=== PATIENT | female | born 1945 | race Two or more races ===

== ENCOUNTER → 2016-08-11 | Outpatient (CLI) | payer MEDICARE, BC ==
[~2016-08-11] MED LIST: ACID CONTROL20 MG PO; ALBUTEROL MININEB NEB; AMLODIPINE BESYL5 MG PO; APAP325 M2 PO; AZITHROMYCIN250 MG PO; FLAGYL PO; LEVAQUIN PO; NORVASC PO; PATIENT'S PHARMACY; PERCOCET 5/321 UDTAB PO; PREDNISONE PO; PROAIR HFA8.5 GM IH; SYMBICORT 160/4.6 G1 IH; WELLBUTRIN XL150 M1 PO
--- NOTE | ~2016-08-11 | MY6 ---
[facility] A Service of [facility] RADIOLOGY TEXT RESULTS PATIENT: MARU MITCHELL LOCATION: [facility] : 45 UNIT #: [id number] AGE: [address]: Josh Washington MD SEX: F ORDER DR: [id number] [place] [id number] [facility]. [place], [place] [address] [id number] O MR#: [id number] Acc #: [id number] NAME: MARU MITCHELL : 1945 SEX: F STUDY DATE/TIME: 08/11/2016 11:02 UNIT: [facility] ROOM: STUDY DESCRIPTION: MY Mammogram Dx Dig Karlos Attending Physician: Josh Washington M.D. Referring Physician: Josh Washington M.D. Ordering Physician: Josh Washington M.D. Primary Care Physician: Josh Washington M.D. MEDICAL IMAGING REPORT This report is preliminary unless electronic signature is present EXAM Bilateral digital diagnostic mammogram CAD. DATE 08/11/2016 HISTORY Palpable abnormality in the lower outer right breast for approximately ttk-zw-agvil weeks per patient. No documented personal or family history of breast malignancy. COMPARISON No previous mammogram at this institution for comparison. The patient is unaware of location of prior mammograms per history sheet. FINDINGS CC, MLO views were obtained of each breast and true ML views were obtained of the right breast. The study was performed utilizing digital technique and reviewed with an FDA-approved CAD device. Scattered fibroglandular densities are present bilaterally. There is a greater than 2 cm macrolobulated increased density nodule within the lower inner right breast mid to anterior third. No definite architectural distortion or microcalcification features are identified. Left breast is negative without nodularity, microcalcification, or architectural distortion. Targeted ultrasound was performed of the right breast at the site of the patient's palpable complaint today. Ultrasound was performed in my direct presence. An approximately 2.2 x 2.4 x 2.0 cm solid macrolobulated angulated mass lesion is identified. It demonstrates acoustic shadowing [facility] A Service of [facility] RADIOLOGY TEXT RESULTS PATIENT: MARU MITCHELL LOCATION: [facility] : 45 UNIT #: [id number] AGE: [address]: Josh Washington MD SEX: F ORDER DR: and demonstrates internal vascularity and color Doppler imaging. It lies at the 7 o'clock position approximately 3 cm deep to the nipple. This mass is consistent with the appearance of malignancy. No additional satellite nodules are seen. No adenopathy is seen within the right axilla. IMPRESSION 1. BIRADS category 4. Suspicious abnormality. Biopsy recommended. Approximately 2.4 cm solid angulated nodule is seen in the 7 o'clock axis of the right breast mid to anterior third depth, and is highly suspicious for malignancy. It corresponds to the patient's palpable complaint. Ultrasound-guided core biopsy recommended. Breast surgical consultation is also advised at this time. These can be scheduled by the referring physician's office at the patient's nearest convenience. 2. I have contacted the breast care aide, Cynthia, at this time, and she is in the process of notifying Dr. Washington's office regarding these pertinent findings and recommendations. 3. The findings and recommendations were discussed in great detail with the patient in the presence of her today. Patients over the age of 40 are entered into a reminder system with target due date for the next mammogram. A result letter will also be sent to the patient. BIRADS: 4 Suspicious abnormality; biopsy should be considered. Dictated by... Bertha Vargas M.D. THIS IS AN ELECTRONICALLY VERIFIED REPORT Bertha Vargas M.D. at 08/12/2016 2:22 PM LIVIA/kraen TD: 08/11/2016 12:41 JOB #: [id number] MEDICAL IMAGING REPORT Page 1 of 1 COPY
--- NOTE | ~2016-08-11 | US24 ---
[facility] A Service of [facility] RADIOLOGY TEXT RESULTS PATIENT: MARU MITCHELL LOCATION: [facility] : 45 UNIT #: [id number] AGE: [address]: Josh Washington MD SEX: F ORDER DR: [id number] [id number] [facility]. [place], [place] [address] [id number] O MR#: [id number] Acc #: [id number] NAME: MARU MITCHELL : 1945 SEX: F STUDY DATE/TIME: 08/11/2016 11:25 UNIT: [facility] ROOM: STUDY DESCRIPTION: US Breast Unilateral Attending Physician: Josh Washington M.D. Referring Physician: Josh Washington M.D. Ordering Physician: Josh Washington M.D. Primary Care Physician: Josh Washington M.D. MEDICAL IMAGING REPORT This report is preliminary unless electronic signature is present EXAM Right breast diagnostic ultrasound 08/11/2016 HISTORY Palpable abnormality in the right breast on diagnostic mammogram today. COMPARISON Bilateral digital diagnostic mammogram 08/11/2016. No more remote available mammogram studies are available at this institution for comparison. Location of any outside study is not known per patient history. FINDINGS Targeted sonographic imaging was performed of the right breast at the site of patient's palpable complaint. At the 7 o'clock position approximately 3 cm from the nipple, a 2.2 x 2.4 x 2 cm solid hypoechoic lobulated and angulated lesion is demonstrated with internal vascularity and color Doppler imaging. It demonstrates acoustic shadowing. This finding is highly suspicious for malignancy. No additional satellite nodules are seen within the same quadrant. Additionally, real-time ultrasound scanning was performed of the right axilla in my direct presence. and no right axillary adenopathy is identified, either. IMPRESSION Right breast BIRADS category 4. Suspicious abnormality. Biopsy recommended. Please refer to the diagnostic mammogram report from this same date for full description of mammographic and sonographic findings and recommendations. BIRADS: 4 Suspicious abnormality - Biopsy should be considered [facility] A Service of [facility] RADIOLOGY TEXT RESULTS PATIENT: MARU MITCHELL LOCATION: [facility] : 45 UNIT #: [id number] AGE: [address]: Josh Washington MD SEX: F ORDER DR: Dictated by... Bertha Vargas M.D. THIS IS AN ELECTRONICALLY VERIFIED REPORT Bertha Vargas M.D. at 08/12/2016 2:22 PM LIVIA/latisha TD: 08/11/2016 12:52 JOB #: [id number] MEDICAL IMAGING REPORT Page 1 of 1 COPY
== END | disposition home or self-care (01) ==
LOC: CMAM 08-10 08:30
DX: N63 Unspecified lump in breast (principal)
CPT/HCPCS: 76641; G0202; G0204

== ENCOUNTER → 2016-08-17 | Outpatient (CLI) | payer MEDICARE, BC ==
--- NOTE | ~2016-08-17 | US200 ---
[facility] A Service of [facility] RADIOLOGY TEXT RESULTS PATIENT: MARU MITCHELL LOCATION: [facility] : 45 UNIT #: [id number] AGE: [address]: Britt Ugalde MD SEX: F ORDER DR: [id number] [place] [address] [id number] [facility]. [place], [place] [address] [id number] O MR#: [id number] Acc #: [id number] NAME: MARU MITCHELL : 1945 SEX: F STUDY DATE/TIME: 08/17/2016 8:06 UNIT: [facility] ROOM: STUDY DESCRIPTION: US Breast Guided Bx 1st Lesion Attending Physician: Britt Ugalde M.D., Ph.D. Referring Physician: Britt Ugalde M.D., Ph.D. Ordering Physician: Britt Ugalde M.D., Ph.D. Primary Care Physician: Britt Ugalde M.D., Ph.D. MEDICAL IMAGING REPORT This report is preliminary unless electronic signature is present REVISED REPORT SEE ADDENDUM EXAM Ultrasound-guided biopsy of right breast INDICATION Large right breast mass. Prior studies were showing a 2 cm mass in the right breast at 7 o'clock. FINDINGS After informed consent and sterile preparation and local anesthesia I obtained 3 14-gauge core samples under direct ultrasound guidance. An image of each pass was recorded and stored on the DR system. Then a marker was placed into the mass. Patient tolerated procedure well is well. Post procedure mammogram showed the clip in good position. IMPRESSION Successful core sampling of a suspicious right breast mass. Pathology report is pending. Dictated by... Jamie Liang M.D. THIS IS AN ELECTRONICALLY VERIFIED REPORT Jamie Liang M.D. at 08/18/2016 7:05 AM EDWIN/rnkacey TD: 08/17/2016 18:38 JOB #: [id number] [facility] A Service of [facility] RADIOLOGY TEXT RESULTS PATIENT: MARU MITCHELL LOCATION: [facility] : 45 UNIT #: [id number] AGE: [address]: Britt Ugalde MD SEX: F ORDER DR: ADDENDUM Pathology report shows invasive ductal carcinoma of the breast. Patient will follow-up with Dr. Ugalde. Dictated by... Jamie Liang M.D. THIS IS AN ELECTRONICALLY VERIFIED REPORT Jamie Liang M.D. at 08/28/2016 1:53 PM EDWIN/lorena TD: 08/27/2016 02:14 JOB #: [id number] MEDICAL IMAGING REPORT Page 1 of 1 COPY
== END | disposition home or self-care (01) ==
LOC: CWCC 07:25
DX: C50.911 Malignant neoplasm of unspecified site of right female breast (principal); Z17.0 Estrogen receptor positive status [ER+]
CPT/HCPCS: 88305; 88341; 88342; 88360; G0204

== ENCOUNTER 2016-11-09 08:54 | Inpatient (IN) | payer MEDICARE, BC ==
[~2016-11-09] VITALS: Ht 149.9 cm; Wt 78.6 kg
--- NOTE | ~2016-11-09 | CR72 ---
[facility] A Service of [facility] RADIOLOGY TEXT RESULTS PATIENT: MARU MITCHELL LOCATION: [facility] : 45 UNIT #: [id number] AGE: [address]: Lacey Iglesias APRN SEX: F ORDER DR: [id number] [facility] [address] [place], [place] [address] [id number] E MR#: [id number] Acc #: [id number] NAME: MARU MITCHELL : 1945 SEX: F STUDY DATE/TIME: 11/09/2016 10:06 UNIT: [facility] ROOM: STUDY DESCRIPTION: CR Chest Single View Portable Attending Physician: Lacey Iglesias A.P.R.N. Ordering Physician: Ed Doctor [id number] [facility] Primary Care Physician: Josh Washington M.D. MEDICAL IMAGING REPORT This report is preliminary unless electronic signature is present EXAM Chest portable 11/09/2016 10:06 hours HISTORY Shortness of air with abdominal pain beginning 1 week ago. Patient with breast carcinoma who recently started chemotherapy. COMPARISON 09/21/2016 FINDINGS Portable upright chest demonstrates stable left subclavian port catheter with tip in SVC. The cardiac, mediastinal and hilar contours are normal. The lung volumes are improved over the prior exam. The lungs are clear and there are no effusions. IMPRESSION 1. Stable left subclavian port catheter with tip in SVC. 2. Improved lung volumes with clear lungs. No pleural effusion or pneumothorax. Dictated by... Saida Vega M.D. THIS IS AN ELECTRONICALLY VERIFIED REPORT Saida Vega M.D. at 11/09/2016 2:31 PM DAVONTE/sahra TD: 11/09/2016 12:38 JOB #: [id number] [facility] A Service of [facility] RADIOLOGY TEXT RESULTS PATIENT: MARU MITCHELL LOCATION: [facility] : 45 UNIT #: [id number] AGE: [address]: Lacey Iglesias APRN SEX: F ORDER DR: MEDICAL IMAGING REPORT Page 1 of 1 COPY
--- NOTE | ~2016-11-09 | CT4 ---
[facility] A Service of [facility] & [facility] RADIOLOGY TEXT RESULTS PATIENT: MARU MITCHELL LOCATION: A 313-01 : 45 UNIT #: [id number] AGE: [address]: Jeevan Drummond MD SEX: F ORDER DR: [id number] [facility] [address] [place], [place] [address] [id number] E MR#: [id number] Acc #: [id number] NAME: MARU MITCHELL : 1945 SEX: F STUDY DATE/TIME: 11/09/2016 12:12 UNIT: [facility] ROOM: STUDY DESCRIPTION: CT Abd and Pelv Wo Cont Attending Physician: Lacey Iglesias A.P.R.N. Ordering Physician: Ed Doctor [id number] [facility] Primary Care Physician: Josh Washington M.D. MEDICAL IMAGING REPORT This report is preliminary unless electronic signature is present EXAM CT abdomen and pelvis, 11/09/2016 HISTORY Left lower quadrant pain, nausea undergoing chemo for breast cancer since Monday night 11/05/2016. Pain. Prior appendectomy. Right hip surgery, right breast lumpectomy, breast cancer diagnosed 1-[address] abdomen pelvis performed without administration of oral or intravenous contrast. This CT exam was performed with one or more of the following radiation dose reduction techniques: automatic exposure control, adjustment of mA and/or kV according to patient size, and iterative reconstruction. FINDINGS Study limited in the absence of both enteric and intravascular contrast. No prior CTs of the abdomen and pelvis for comparison. There are limited views of the upper abdomen from CT chest dated 12/30/2009. Postoperative changes in the right anterior chest wall likely related to the patient's breast cancer. The lung bases are notable for mild bronchiectasis without mucous plugging. There is probably underlying centrilobular emphysema as well. The heart is upper limits of normal in size. Fatty infiltration of the liver. Gallbladder shows some questionable nonobstructing gallstones. No gallbladder inflammatory change and no biliary ductal dilatation. Spleen, pancreas, adrenal glands, kidneys unremarkable. CT Pelvis: Images degraded by streak artifact from right hip prosthesis. Urinary bladder unremarkable in visualized extent. Uterus and adnexal regions unremarkable. No fluid collections. No pelvic or retroperitoneal adenopathy. Distal esophagus, stomach, small bowel unremarkable. Prior appendectomy. In the proximal to mid transverse colon there is a segment STS. [facility] A Service of [facility] & [facility] RADIOLOGY TEXT RESULTS PATIENT: MARU MITCHELL LOCATION: [facility] 313-01 : 45 UNIT #: [id number] AGE: [address]: Jeevan Drummond MD SEX: F ORDER DR: of bowel measuring about 3.0-4.0 cm in length. There is some subtle wall thickening and adjacent haziness/fat stranding. Diverticular disease in this region. Appearance concerning for mild acute diverticulitis. In the descending colon there is a longer segment of bowel measuring on the order of 8.0-9.0 cm with adjacent fat stranding and haziness. Extensive diverticular disease in this region. Mild descending colon diverticulitis favored. I do not see distinct inflamed diverticula in this in these regions. The possibility of some other infectious or inflammatory colitis could be considered. There is no free air, obstruction or fluid collection. Atherosclerotic arterial calcifications. No aneurysm. Right hip arthroplasty is noted. No acute-appearing bony abnormality. IMPRESSION 1. Near pancolonic diverticulosis. In proximal to mid transverse colon there is an approximately 3.0-4.0 cm segment demonstrating mural thickening and some subtle adjacent pericolonic fat stranding and haziness. There is a longer 8.0-9.0 cm length of descending colon with similar findings. Findings are concerning for acute diverticulitis in these regions though focally inflamed diverticula are not visualized. The possibility of some other form of infectious or inflammatory colitis could be considered. No resulting free air, fluid collection or abscess. No obstruction. I would recommend short-interval followup imaging after treatment for diverticulitis to ensure resolution of wall thickening. 2. Faintly visualized gallstones. No cholecystitis or biliary ductal dilatation. 3. Kidneys and collecting system normal. 4. Prior right hip arthroplasty. Remainder of examination unremarkable. Dictated by... Reynold Cervantes M.D. THIS IS AN ELECTRONICALLY VERIFIED REPORT Reynold Cervantes M.D. at 11/10/2016 6:35 PM Zara TD: 11/09/2016 14:12 JOB #: [id number] MEDICAL IMAGING REPORT Page 1 of 1 COPY
--- NOTE | ~2016-11-09 | CO ---
Unit #: [id number] #: [id number] Patient: MARU MITCHELL [id number] [address] [place], [place] [address] [id number] I MR#: [id number] NAME: MARU MITCHELL ROOM: 313 Age: 71 Sex: F Admission Date: 11/09/2016 : 1945 Attending Physician: Jeevan Drummond M.D. Primary Care Physician: Josh Washington M.D. Consultation Date: 11/10/2016 CONSULTATION REPORT REASON FOR EVAL Neutropenia and possible diverticulitis; please evaluate. HISTORY OF PRESENT ILLNESS This is a 71-year-old lady who had a lumpectomy on the right side, was found to have breast cancer, which was HER-2/jose armando positive. On the 17 of this month, she received her first dose of Taxotere, Cytoxan and Herceptin. Presents with neutropenia and possible diverticulitis. PAST MEDICAL HISTORY Her past history is mainly remarkable for this diagnosis of breast cancer, lumpectomy. She does have a history of acute on chronic bronchitis and possible COPD. CHRONIC MEDICATIONS Wellbutrin and Norvasc. ALLERGIES No known allergies. FAMILY HISTORY Family history is negative for blood disorders or breast cancer. SOCIAL HISTORY She does have a history of smoking but quit many years ago. No history of drugs or alcohol. Patient is from [facility], is and lives with her . REVIEW OF SYSTEMS Mainly, she states she felt sick. On questioning, it was mainly abdominal cramping and decreased appetite. Mild degree of diarrhea. No fever or chills. No night sweats. Otherwise, 6 or 8 systems were within normal limits. PHYSICAL EXAMINATION GENERAL: She is in no acute distress, sitting up and eating frozen yogurt. LYMPHATICS: No palpable nodes. LUNGS: Clear. CARDIOVASCULAR: Distant S1, S2. ABDOMEN: Diffuse tenderness. No rebound. No rigidity. PELVIC EXAM: Not performed. BREAST EXAM: Not performed. Unit #: [id number] #: [id number] Patient: MARU MITCHELL DIAGNOSTIC STUDIES LABORATORY: CBC - Hemoglobin 11.3, hematocrit 34.8, white count 2,700, platelets 69,000. Sodium 135, potassium 4, chloride 106, CO2 24, glucose 159, BUN 14, creatinine 1. IMPRESSION This 71-year-old lady status post chemotherapy a week ago now has neutropenia and possible diverticulitis. Has a history of breast cancer status post Taxotere, Cytoxan and Herceptin chemotherapy. PLAN Agree with broad-spectrum antibiotics for her diverticulitis, which will include Rocephin and Flagyl. We would recommend hand washing before touching. Add Granix 480 mcg subcu daily. Hold if the white count is greater than 3,500. Will check a CBC daily, and in case she spikes a fever above 101.5, will do 2 sets of blood cultures 10 minutes apart. Dictated by... Ely Metz/kinga TD: 11/10/2016 15:50 JOB #: [id number] CONSULTATION REPORT Page 1 of 1 X Wolf Brasher MD X CONSULTATION REPORT
--- NOTE | ~2016-11-09 | CO ---
Unit #: [id number] #: [id number] Patient: MARU CABRERA [id number] [address] [address] [id number] I MR#: [id number] NAME: MARU CABRERA ROOM: 313 Age: 71 Sex: F Admission Date: 11/09/2016 : 1945 Attending Physician: Karthik Rodriguez M.D. Primary Care Physician: Josh Washington M.D. Consultation Date: 11/13/2016 CONSULTATION REPORT PRIMARY CARE PHYSICIAN Josh Washington M.D. REASON FOR CONSULTATION Diverticulitis. HISTORY OF PRESENT ILLNESS Ms. Cabrera is a very pleasant 71-year-old white female. History was provided by the patient and by her who was sitting at the bedside. For the past 3 to 4 days, the patient has had increasing abdominal pain in the left lower quadrant of the abdomen to the point where it became extremely intense and continuous. The patient was brought to the hospital. Incidentally, she has recently finished chemotherapy after treatment for breast cancer and the last chemotherapy dose was about a week ago. At that time when she came in, she had neutropenic fever and thus was started on G-CSF by Hematology, Dr. Brasher. The patient since then has improved with resolution of fever and is feeling much better in terms of overall pain level in her abdomen on a combination of Zosyn and Flagyl. Her appetite is still quite poor and she is on clear liquid diet. Although, the patient has been found to have Hemoccult-positive stools, there is no history of overt GI bleed in the form of hematemesis, melena, or hematochezia. Admission hemoglobin was 14 and has since then dropped gradually to 8.8. There is no history of overt GI bleed; although, she is found to have occult gastrointestinal blood loss. Her white count is actually 23,500 today. Admission white count was 1.3. The patient has not had any colonoscopy in the past that she can remember. PAST MEDICAL HISTORY Significant for history of breast cancer being recently treated by lumpectomy followed by chemoradiation therapy, history of COPD, and GERD. PAST SURGICAL HISTORY Included lumpectomy, section, and appendectomy. MEDICATIONS At home included Norvasc and Wellbutrin. ALLERGIES She has no known drug allergies. FAMILY HISTORY None of colon, pancreatic cancer, or liver disease. Unit #: [id number] #: [id number] Patient: MARU CABRERA SOCIAL HISTORY Remote history of smoking. Does not drink alcohol. Lives at home with . She is originally from [facility]. REVIEW OF SYSTEMS Detailed review of organ systems is significant for left lower abdominal pain. There is no history of diarrhea. No history of nausea or vomiting. There is a history of low-grade fever on admission, which is now resolved. No history of chills or rigors. No history of significant weight loss. No history of headache, seizures, chest pain, or syncope. No history of cough, expectoration, or hemoptysis. No history of dysuria, hematuria, or pyuria. No history of focal seizures or extremity weakness. PHYSICAL EXAMINATION GENERAL: She is awake, alert, and oriented, and appears comfortable. VITAL SIGNS: Stable with a temperature of 98.7, pulse 89, respiratory rate is 18, blood pressure 122/68. She weighs 171 pounds which is close to her baseline weight. HEENT: She has mild pallor. There being no icterus, lymphadenopathy, or peripheral edema. CARDIOVASCULAR: Normal heart sounds. No murmurs. LUNGS: Auscultation over the lungs reveals normal breath sounds. Good air entry. ABDOMEN: Obese and soft with localized minimal tenderness in the left lower quadrant. No area of exquisite rigidity, rebound, or guarding is felt. Liver and spleen are not palpable. Bowel sounds normal. DIAGNOSTIC STUDIES LABORATORY RESULTS: Shows a hemoglobin of 8.8 with admission hemoglobin of 14. This has been a slow drop. White count today is 23.5 on G-CSF. Platelet count is 129. Serum chemistry shows normal BUN and creatinine, and potassium of 3.4, albumin is 3.3. LFTs are normal. Urinalysis shows 1+ leukocyte esterase positive. IMAGING STUDIES: A CT scan of the abdomen and pelvis was done and is consistent with left descending colon diverticulitis. This however an additional segment in the transverse colon which is separate from the descending colon segment that is also concerning. CLINICAL IMPRESSION The overall diagnosis here is indeed acute diverticulitis on a background of neutropenic sepsis which is now resolving. The patient with history of breast cancer, status post lumpectomy and chemotherapy finished now. MANAGEMENT PLAN Includes continuation of IV antibiotics as the patient seems to be responding. We will advance her diet over the next couple of days. The patient will require a diagnostic colonoscopy as an outpatient in 6 to 8 weeks after recovery from the current episode. The above plan was discussed with the patient and her who was at the bedside and they were reassured. Thank you for asking me to see this pleasant woman. I appreciate the consult. Dictated by... Unit #: [id number] #: [id number] Patient: MARU CABRERA M.D. AK/shahriar TD: 11/14/2016 14:06 JOB #: [id number] CC: Ely Howard M.D. CONSULTATION REPORT Page 1 of 1 X Ranulfo Arreola MD X CONSULTATION REPORT
--- NOTE | ~2016-11-09 | DS ---
Unit #: [id number] #: [id number] Patient: MARU MITCHELL [id number] [address] [address] [id number] MR#: [id number] NAME: MARU MITCHELL ROOM: 313 Age: 71 Sex: F Admission Date: 11/09/2016 : 1945 Discharge Date: 11/14/2016 Attending Physician: Karthik Rodriguez M.D. Primary Care Physician: Josh Washington M.D. DISCHARGE SUMMARY DISCHARGE DIAGNOSES 1. Colitis. 2. Breast cancer. 3. Anemia. 4. Pancytopenia secondary to chemotherapy. HOSPITAL COURSE The patient is a 71-year-old female who presented to [facility] on 11/09/16 secondary to some abdominal pain. She had had chemotherapy 7 days before. She had been feeling sick for about 5 days and had worsening pain. She presented to the emergency department. CT showed acute diverticulitis. Patient was started on IV antibiotics. She was seen in consultation by Dr. Brasher, given her history of breast cancer with chemotherapy. She was noted to have significant pancytopenia and was, thus, seen in consultation by hematology/oncology, as well. The patient initially had neutropenia and received Granix. Her white count the day prior to discharge was 23. Patient had heme-positive stools and was seen by gastroenterology who noted no need for intervention. At this time, given recovery of her cell lines and that she is tolerating a diet, the patient is being discharged home with 5 more days of antibiotics. She should follow up with hematology/oncology in one week. Dictated by... Karthik Rodriguez M.D. CARLOS/kinga TD: 11/16/2016 10:56 JOB #: [id number] Unit #: [id number] #: [id number] Patient: MARU MITCHELL DISCHARGE SUMMARY Page 1 of 1 X Karthik Rodriguez MD DISCHARGE SUMMARY
--- NOTE | ~2016-11-09 | EKG ---
PATIENT: MARU MITCHELL UNIT #: [id number] Ventricular Rate: 98 BPM Atrial Rate: 98 BPM P-R Interval: 166 ms QRS Duration: 82 ms Q-T Interval: 344 ms QTC Calculation(Bezet): 439 ms P [place]: 19 degrees Calculated R [place]: 46 degrees Calculated T [place]: -23 degrees Diagnosis Line: Normal sinus rhythm Diagnosis Line: Inferior infarct , age undetermined Diagnosis Line: T wave abnormality, consider anterior ischemia Diagnosis Line: Abnormal ECG Diagnosis Line: When compared with ECG of 31-MAR-2014 21:28, Diagnosis Line: Inferior infarct is now Present Diagnosis Line: Confirmed by AYLIN FONTANEZ MD ([id number]) on 11/10/2016 Diagnosis Line: 10:18:39 PM INTERPRETING MD: HUSEYIN FABIAN
--- NOTE | ~2016-11-09 | HP ---
Unit #: [id number] #: [id number] Patient: MARU MITCHELL [id number] [address] [address] [id number] MR#: [id number] NAME: MARU MITCHELL ROOM: Age: 71 Sex: F Admission Date: 11/09/2016 : 1945 Attending Physician: Lacey Iglesias A.P.R.N. Primary Care Physician: Josh Washington M.D. HISTORY AND PHYSICAL CHIEF COMPLAINT Abdominal pain. HISTORY OF PRESENT ILLNESS The patient is a 71-year-old female with history of hypertension and newly diagnosed right breast cancer status post lumpectomy and chemo, brought to the emergency room complaining of the abdominal pain. The patient had a last chemo last . The patient went home and started feeling sick since Monday. Monday, the patient was gradually having worsening abdominal pain, mainly the left lower quadrant and presented to the emergency room for the above reasons. The patient had a CT of the abdomen and pelvis that showed acute diverticulitis and is being admitted for the above reasons. Denies any fevers, chills. The patient feels cold. Denies any sick contacts. No history of colonoscopy in the past. PAST MEDICAL HISTORY 1. History of COPD. 2. GERD. PAST SURGICAL HISTORY 1. Appendectomy. 2. . 3. Lumpectomy. ALLERGIES None. HOME MEDICATIONS 1. Norvasc. 2. Wellbutrin. FAMILY HISTORY Reviewed and none. SOCIAL HISTORY The patient has a remote history of smoking and no history of alcohol and any illicit drug abuse. Patient is originally from [facility] and currently lives with her . REVIEW OF SYSTEMS Positive for the cold. Positive for the abdominal pain. Denies any nausea and vomiting. Denies any chest pain. All other systems are reviewed and none. Unit #: [id number] #: [id number] Patient: MARU MITCHELL PHYSICAL EXAMINATION GENERAL: Patient is lying on a bed not in acute distress. VITAL SIGNS: Temperature 97.1, pulse 112, respiratory rate 16, blood pressure 16, blood pressure 136/87, saturating 97% on room air. HEENT: Head atraumatic, normocephalic. Pupils equal, round, and reactive to light and accommodation. Dry mucous membrane. NECK: Supple. LUNGS: Decreased air entry at the bases. HEART: Regular rate and rhythm. ABDOMEN: Soft. Positive bowel sounds. Tenderness at the left lower quadrant. No rebound. No rigidity. EXTREMITIES: No cyanosis. No clubbing. NEUROLOGIC: Alert, awake, oriented. No gross focal motor deficit. DIAGNOSTIC STUDIES LABORATORY: Strep throat is negative. Troponin less than 0.05. WBC 1.3, hemoglobin 14, hematocrit 41.4, platelets 65,000. Neutrophils 16.7. Sodium 134, potassium 4, chloride 101, bicarbonate 23, glucose 156, BUN 32, creatinine 1.1. AST 23, ALT 33, alkaline phosphatase 105, albumin 3.3, lipase 16, amylase 19. UA shows 1+ leukocyte esterase. IMAGING: Chest x-ray shows a stable left subclavian port catheter with tip in SVC, improved lung volumes with clear lungs. No pleural effusion or pneumothorax. CT of the abdomen and pelvis shows near pancolonic diverticulosis. In proximal to mid transverse colon, there is approximately 3 to 4 cm demonstrating mural thickening and some subtle adjacent pericolonic fat stranding and haziness. There is a longer 8 to 9 length of descending colon with similar findings. Findings are concerning for acute diverticulitis in these regions though focally inflamed diverticula are note visualized. The possibility of some other forms of infection or inflammatory colitis could be considered. No resulting free air fluid collection or abscess. No obstruction. Faintly visualized gallstones. Kidneys and collecting system normal. Prior right hip arthroplasty. ASSESSMENT 1. Diverticulitis. 2. Thrombocytopenia. 3. History of right breast cancer, status post lumpectomy and chemotherapy. PLAN Plan to admit the patient to the inpatient. Continue with IV fluids. Bowel rest with ice chips. Check the lactic acid and initiate the sepsis protocol. Continue with the IV antibiotics with Rocephin and Flagyl and repeat the labs again in the morning. Further recommendations will follow. Dictated by Ely Yancey TD: 11/09/2016 14:59 JOB #: [id number] Unit #: [id number] #: [id number] Patient: MARU MITCHELL HISTORY AND PHYSICAL Page 1 of 1 X OSITO STARK MD HISTORY AND PHYSICAL
[~2016-11-09 08:54] MED LIST changes: -FLAGYL PO; -LEVAQUIN PO; -NORVASC PO; -PATIENT'S PHARMACY; -PERCOCET 5/321 UDTAB PO; -WELLBUTRIN XL150 M1 PO
[2016-11-09 10:15] LABS: BASOPHIL% 0.5 % (0-2.5); EOSINOPHIL# 0.1 X10e3 (0-0.7); EOSINOPHIL% 7.2 % (0.0-7.0); HEMATOCRIT 41.4 % (35.0-45.0); LYMPHOCYTE# 0.9 X10e3 (1.0-3.5); LYMPHOCYTE% 66.4 % (17.0-45.0); MEAN CELL VOLUME 87.8 FL (83-96); MEAN CORPUSCULAR HEMOGLOBIN 29.6 PG (28-34); MEAN CORPUSCULAR HGB CONC 33.8 g/dL (30-36); MEAN PLATELET VOLUME 9.7 FL (6.5-11.5); MONOCYTE# 0.1 X10e3 (0-1.0); MONOCYTE% 9.2 % (3.0-12.0); NEUTROPHIL# 0.2 X10e3 (1.5-7.1); NEUTROPHIL% 16.7 % (40-75); RED BLOOD COUNT 4.72 X10e (3.90-5.30); RED CELL DISTRIBUTION WIDTH 14.4 % (11.0-15.5); WHITE BLOOD COUNT 1.3 X10e3 (4.0-10.5)
[2016-11-09 10:33] LABS: POC - CKMB <1.0 ng/mL (0.0-7.9); POC - TROPONIN <0.05 ng/mL (<=0.05)
[2016-11-09 10:34] LABS: DIFF IND YES; PLATELET COUNT 65 X10e3 (140-420)
[2016-11-09 10:35] LABS: ANISOCYTOSIS SL; PLATELET ESTIMATE DECREASED (NORMAL)
[2016-11-09 10:38] LABS: ALBUMIN SERUM 3.3 g/dL (3.5-5.0); BILIRUBIN, DIRECT 0.4 mg/dL (0.0-0.2); BILIRUBIN,INDIRECT 0.6 mg/dL (0.0-0.9); BUN/CREATININE RATIO 29.09; CALCIUM SERUM 8.5 mg/dL (8.4-10.2); CREATININE SERUM 1.1 mg/dL (0.6-1.4); GLOM FILT RATE Estimated 50.5 mL/min (>60); PROTEIN TOTAL SERUM 7.3 g/dL (6.0-8.3)
[2016-11-09 11:42] LABS: URINE SOURCE CLEAN CATCH
[2016-11-09 11:51] LABS: URINE APPEARANCE CLEAR; URINE BLOOD TRACE (NEG); URINE COLOR DK YELLOW; URINE GLUCOSE NEG (NEG); URINE KETONE TRACE (NEG); URINE LEUKOCYTE ESTERASE 1+ (NEG); URINE NITRATE NEG (NEG); URINE PROTEIN TRACE (NEG); URINE SPECIFIC GRAVITY 1.028 (1.003-1.035)
[2016-11-09 11:54] LABS: URINE BACTERIA AUWI NEG (NEGATIVE); URINE SQUAMOUS EPITHELIAL CELL OCC /[HPF]
[2016-11-09 12:01] LABS: CULTURE INDICATED? NO; URINE BILIRUBIN NEG (NEG)
[2016-11-09] MEDS ORDERED: NORVASC PO (14:36)
[2016-11-09] MEDS ORDERED: PATIENT'S PHARMACY (14:36)
[2016-11-09] MEDS ORDERED: WELLBUTRIN XL150 M1 PO (14:36)
[2016-11-10 05:22] LABS: HEMATOCRIT 34.8 % (35.0-45.0); MEAN CELL VOLUME 89.5 FL (83-96); MEAN CORPUSCULAR HEMOGLOBIN 29.1 PG (28-34); MEAN CORPUSCULAR HGB CONC 32.5 g/dL (30-36); MEAN PLATELET VOLUME 10.2 FL (6.5-11.5); RED BLOOD COUNT 3.89 X10e (3.90-5.30); RED CELL DISTRIBUTION WIDTH 14.3 % (11.0-15.5)
[2016-11-10 05:25] LABS: HEMOGLOBIN 11.3 gm/dL (12.0-16.0); WHITE BLOOD COUNT 2.7 X10e3 (4.0-10.5)
[2016-11-10 07:16] LABS: CALCIUM SERUM 7.6 mg/dL (8.4-10.2); GLOM FILT RATE Estimated 56.7 mL/min (>60)
[2016-11-11 05:58] LABS: BASOPHIL% 0.2 % (0-2.5); EOSINOPHIL# 0.1 X10e3 (0-0.7); EOSINOPHIL% 0.5 % (0.0-7.0); HEMATOCRIT 33.2 % (35.0-45.0); HEMOGLOBIN 10.9 gm/dL (12.0-16.0); LYMPHOCYTE# 1.8 X10e3 (1.0-3.5); LYMPHOCYTE% 11.7 % (17.0-45.0); MEAN CELL VOLUME 89.2 FL (83-96); MEAN CORPUSCULAR HEMOGLOBIN 29.1 PG (28-34); MEAN CORPUSCULAR HGB CONC 32.7 g/dL (30-36); MEAN PLATELET VOLUME 10.3 FL (6.5-11.5); MONOCYTE# 0.7 X10e3 (0-1.0); MONOCYTE% 4.9 % (3.0-12.0); NEUTROPHIL# 12.5 X10e3 (1.5-7.1); NEUTROPHIL% 82.7 % (40-75); PLATELET COUNT 98 X10e3 (140-420); RED BLOOD COUNT 3.73 X10e (3.90-5.30); RED CELL DISTRIBUTION WIDTH 14.4 % (11.0-15.5); WHITE BLOOD COUNT 15.1 X10e3 (4.0-10.5)
[2016-11-11 06:00] LABS: DIFF IND NO
[2016-11-11 06:06] LABS: CALCIUM SERUM 7.7 mg/dL (8.4-10.2); CREATININE SERUM 0.8 mg/dL (0.6-1.4); GLOM FILT RATE Estimated 74.2 mL/min (>60); POTASSIUM 3.1 mmol/L (3.5-5.1)
[2016-11-12 06:08] LABS: BUN/CREATININE RATIO 8.75; CALCIUM SERUM 7.7 mg/dL (8.4-10.2); CREATININE SERUM 0.8 mg/dL (0.6-1.4); GLOM FILT RATE Estimated 74.2 mL/min (>60); MAGNESIUM 1.6 mg/dL (1.6-3.0); POTASSIUM 3.4 mmol/L (3.5-5.1)
[2016-11-12 08:19] LABS: HEMATOCRIT 29.9 % (35.0-45.0); HEMOGLOBIN 9.6 gm/dL (12.0-16.0); MEAN CELL VOLUME 90.2 FL (83-96); MEAN CORPUSCULAR HGB CONC 32.2 g/dL (30-36); MEAN PLATELET VOLUME 10.6 FL (6.5-11.5); RED BLOOD COUNT 3.31 X10e (3.90-5.30); RED CELL DISTRIBUTION WIDTH 14.5 % (11.0-15.5); WHITE BLOOD COUNT 41.4 X10e3 (4.0-10.5)
[2016-11-12 20:54] LABS: HEMATOCRIT 29.5 % (35.0-45.0); HEMOGLOBIN 9.4 gm/dL (12.0-16.0)
[2016-11-13 02:39] LABS: HEMATOCRIT 27.6 % (35.0-45.0); HEMOGLOBIN 8.9 gm/dL (12.0-16.0)
[2016-11-13 09:03] LABS: HEMATOCRIT 26.6 % (35.0-45.0); HEMOGLOBIN 8.8 gm/dL (12.0-16.0); MEAN CELL VOLUME 89.3 FL (83-96); MEAN CORPUSCULAR HEMOGLOBIN 29.4 PG (28-34); MEAN PLATELET VOLUME 9.2 FL (6.5-11.5); RED BLOOD COUNT 2.97 X10e (3.90-5.30); RED CELL DISTRIBUTION WIDTH 14.6 % (11.0-15.5); WHITE BLOOD COUNT 23.5 X10e3 (4.0-10.5)
[2016-11-13 15:00] LABS: HEMATOCRIT 27.6 % (35.0-45.0); HEMOGLOBIN 8.9 gm/dL (12.0-16.0)
[2016-11-13 20:59] LABS: HEMATOCRIT 31.4 % (35.0-45.0); HEMOGLOBIN 10.2 gm/dL (12.0-16.0)
[2016-11-14 02:51] LABS: HEMATOCRIT 30.1 % (35.0-45.0); HEMOGLOBIN 9.7 gm/dL (12.0-16.0)
[2016-11-14 06:45] LABS: ALBUMIN SERUM 2.3 g/dL (3.5-5.0); BILIRUBIN,TOTAL 0.6 mg/dL (0.2-2.0); BUN/CREATININE RATIO 7.14; CALCIUM SERUM 7.7 mg/dL (8.4-10.2); CREATININE SERUM 0.7 mg/dL (0.6-1.4); GLOM FILT RATE Estimated 87.2 mL/min (>60); POTASSIUM 3.9 mmol/L (3.5-5.1); PROTEIN TOTAL SERUM 4.7 g/dL (6.0-8.3)
[2016-11-14 10:19] LABS: HEMATOCRIT 29.6 % (35.0-45.0); HEMOGLOBIN 9.9 gm/dL (12.0-16.0)
[2016-11-14 14:38] LABS: HEMATOCRIT 29.8 % (35.0-45.0); HEMOGLOBIN 9.8 gm/dL (12.0-16.0); MEAN CELL VOLUME 89.6 FL (83-96); MEAN CORPUSCULAR HEMOGLOBIN 29.5 PG (28-34); MEAN CORPUSCULAR HGB CONC 32.9 g/dL (30-36); MEAN PLATELET VOLUME 9.6 FL (6.5-11.5); RED BLOOD COUNT 3.33 X10e (3.90-5.30); RED CELL DISTRIBUTION WIDTH 14.9 % (11.0-15.5); WHITE BLOOD COUNT 23.3 X10e3 (4.0-10.5)
[2016-11-14] MEDS ORDERED: FLAGYL PO (14:40)
[2016-11-14] MEDS ORDERED: PERCOCET 5/321 UDTAB PO (14:40)
[2016-11-14] MEDS ORDERED: LEVAQUIN PO (14:41)
== END 2016-11-14 17:52 | disposition home or self-care (01) | DRG 391 ==
LOC: CED 08:54 → CEDOF 14:17 → CED 14:17 → CEDOF 14:27 → C3A PCU 14:27 → CEDOF 14:27 → CED 14:27 → C3A PCU 11-10 07:44
PROVIDERS: Internal Medicine; Internal Medicine Medical Oncology; Nurse Practitioner
PROC: 30233N1 Transfusion of Nonautologous Red Blood Cells into Peripheral Vein, Percutaneous Approach (ICD-10-PCS; principal; 2016-11-13)
DX: K57.92 Diverticulitis of intestine, part unspecified, without perforation or abscess without bleeding (principal); D61.810 Antineoplastic chemotherapy induced pancytopenia; D69.6 Thrombocytopenia, unspecified; J44.9 Chronic obstructive pulmonary disease, unspecified; K92.1 Melena; K52.9 Noninfective gastroenteritis and colitis, unspecified; Z85.3 Personal history of malignant neoplasm of breast; T45.1X5A Adverse effect of antineoplastic and immunosuppressive drugs, initial encounter; Y92.9 Unspecified place or not applicable; R50.81 Fever presenting with conditions classified elsewhere; D64.9 Anemia, unspecified; I10 Essential (primary) hypertension; Z87.891 Personal history of nicotine dependence; E87.6 Hypokalemia
CPT/HCPCS: 36415; 71010; 74176; 80048; 80053; 80076; 81003; 82150; 82274; 82553; 83605; 83690; 83735; 84484; 85014; 85018; 85025; 85027; 86850; 86900; 86901; 86923; 87040; 87045; 87427; 87493; 87651; 87899; 93005; 94760; 96361; 96374; 96375; 97162; 97165; 99285; G8978-GP; G8979-GP; G8980-GP; G8987-GO; G8988-GO; G8989-GO; J0696; J1447; J2270; J2405; J2543; P9016

== ENCOUNTER 2016-11-20 19:09 | Emergency (ER) | payer MEDICARE, BC ==
[~2016-11-20] VITALS: Ht 152.4 cm; Wt 77.1 kg
[~2016-11-20 19:09] MED LIST changes: +FLAGYL PO; +LEVAQUIN PO; +NORVASC PO; +PATIENT'S PHARMACY; +PERCOCET 5/321 UDTAB PO; +WELLBUTRIN XL150 M1 PO
[2016-11-20 21:44] LABS: BASOPHIL% 0.1 % (0-2.5); EOSINOPHIL% 0.3 % (0.0-7.0); HEMATOCRIT 34.7 % (35.0-45.0); HEMOGLOBIN 11.4 gm/dL (12.0-16.0); LYMPHOCYTE# 2.3 X10e3 (1.0-3.5); LYMPHOCYTE% 14.1 % (17.0-45.0); MEAN CELL VOLUME 89.5 FL (83-96); MEAN CORPUSCULAR HEMOGLOBIN 29.3 PG (28-34); MEAN CORPUSCULAR HGB CONC 32.8 g/dL (30-36); MEAN PLATELET VOLUME 8.4 FL (6.5-11.5); MONOCYTE# 0.8 X10e3 (0-1.0); MONOCYTE% 4.7 % (3.0-12.0); NEUTROPHIL# 13.3 X10e3 (1.5-7.1); NEUTROPHIL% 80.8 % (40-75); PLATELET COUNT 433 X10e3 (140-420); RED BLOOD COUNT 3.88 X10e (3.90-5.30); RED CELL DISTRIBUTION WIDTH 15.5 % (11.0-15.5); WHITE BLOOD COUNT 16.4 X10e3 (4.0-10.5)
[2016-11-20 21:49] LABS: DIFF IND YES
[2016-11-20 22:05] LABS: ALBUMIN SERUM 2.9 g/dL (3.5-5.0); BILIRUBIN, DIRECT 0.1 mg/dL (0.0-0.2); BILIRUBIN,TOTAL 0.1 mg/dL (0.2-2.0); BUN/CREATININE RATIO 5.38; CALCIUM SERUM 8.1 mg/dL (8.4-10.2); CREATININE SERUM 1.3 mg/dL (0.6-1.4); GLOM FILT RATE Estimated 41.2 mL/min (>60); PROTEIN TOTAL SERUM 6.6 g/dL (6.0-8.3)
[2016-11-20 22:10] LABS: POTASSIUM 2.7 mmol/L (3.5-5.1)
[2016-11-20 22:13] LABS: PLATELET ESTIMATE NORMAL (NORMAL)
[2016-11-20 22:14] LABS: POLYCHROMASIA SL
== END 2016-11-20 23:00 | disposition home or self-care (01) ==
LOC: CED 19:09
PROVIDERS: Emergency Medicine
DX: L50.0 Allergic urticaria (principal); E87.6 Hypokalemia; J44.9 Chronic obstructive pulmonary disease, unspecified; Z85.3 Personal history of malignant neoplasm of breast; K21.9 Gastro-esophageal reflux disease without esophagitis; Z98.890 Other specified postprocedural states
CPT/HCPCS: 36415; 80048; 80076; 85025; 96374; 96375; 99283; J1200; J1642; J2930